=== PATIENT | male | born 1950 | race Caucasian/White ===

== ENCOUNTER → 2019-05-13 06:47 | Outpatient (CLI) | payer OTHER, SELFPAY ==
--- NOTE | 2019-05-13 | DI.ECHO.S_ITS ---
[place] +---------+ [facility] +---------+ : : [address] : [address] : : : : [id number] : : : : Phone: [phone]+ Echocardiogram Report + + :Name: TERESSA GRAHAM Study Date: 05/13/2019 Height: 67 in : :[facility] Weight: 160 lb: : Gender: Male BSA: 1.8 m2 : :: 1950 Age: 68 yrs : :Reason For Study: AFIB : : Performed By: Bony Pimentel : :Referring: DIVYA BELTRAN : + + Interpretation Summary The left ventricle is normal in size. The ejection fraction is estimated to be 60-65%. There are no focal wall motion abnormalities. Diastolic parameters suggest a relaxation abnormality of the left ventricle, consistent with probable normal filling pressures. The right ventricle is normal in size and function. Both atria are normal in size. There is no significant valvular heart disease. The ascending aorta is mildly enlarged. Procedure: A two-dimensional transthoracic echocardiogram with color flow and Doppler was performed. The study quality was technically good. There is no prior echocardiogram noted for this patient. The patient was in normal sinus rhythm during the exam. Left Ventricle: The left ventricle is normal in size. There is normal left ventricular wall thickness. The ejection fraction is estimated to be 60-65%. There are no focal wall motion abnormalities. Diastolic parameters suggest a relaxation abnormality of the left ventricle, consistent with probable normal filling pressures. Right Ventricle: The right ventricle is normal in size and function. Atria: Both atria are normal in size. The interatrial septum is intact with no evidence for an atrial septal defect. Mitral Valve: The mitral valve is normal in structure and function. There is trace mitral regurgitation. Aortic Valve: The aortic valve is trileaflet. The aortic valve opens well. No aortic regurgitation is present. Tricuspid Valve: The tricuspid valve is normal in structure and function. There is trace tricuspid regurgitation. Pulmonic Valve: The pulmonic valve is normal in structure and function. There is trace pulmonic regurgitation. There is no significant valvular heart disease. Great Vessels: The aortic root is normal size. The ascending aorta is mildly enlarged. The aortic arch is at the upper limits of normal in size. The pulmonary artery is normal size. The IVC is of normal diameter and collapses greater than 50% with a sniff. This suggests a low right atrial pressure of 3 mm Hg. Pericardium/ Pleura There is no pericardial effusion. There is no pleural effusion. MMode/2D Measurements & Calculations LVIDd: 4.9 cm LVOT diam: 2.3 cm LVIDs: 3.9 cm Ao root diam: 4.3 cm FS: 20.3 % Aortic Jxn: 3.3 cm EPSS: 0.56 cm asc Aorta Diam: 3.9 cm IVSd: 0.66 cm Ao Arch Diam (Prox Trans): 3.1 cm LVPWd: 0.73 cm LV alicea. diameter/BSA (cm/m^2): 2.7 LV sys. diameter/BSA (cm/m^2): 2.1 LA dimension: 3.3 cm RA long axis: 5.0 cm LA A2 area: 20.2 cm2 RA area: 15.1 cm2 LA A4 area: 16.8 cm2 RA vol: 38.8 ml LA length (vol): 4.6 cm RA : 21.1 ml/m2 LA vol: 62.6 ml IVC diam: 1.3 cm LA vol index: 34.0 ml/m2 Doppler Measurements & Calculations Ao V2 max: 99.0 cm/sec LVOT Max Vladislav: 76.9 cm/sec Ao V2 mean: 76.4 cm/sec LV V1 max P.4 mmHg Ao max P.9 mmHg LV V1 VTI: 18.8 cm Ao mean P.5 mmHg YASIR(I,D): 3.9 cm2 Ao V2 VTI: 19.9 cm YASIR(V,D): 3.2 cm2 sev ratio: 0.94 YASIR indexed to BSA (cm^2/m^2): 2.1 MV E max vladislav: 41.0 cm/sec TR max vladislav: 195.1 cm/sec MV A max vladislav: 57.3 cm/sec TR max P.2 mmHg MV E/A: 0.72 PA V2 max: 75.2 cm/sec Med Peak E' Vladislav: 4.4 cm/sec PA V2 mean: 56.4 cm/sec E/E' med: 9.2 PA mean P.3 mmHg Lat Peak E' Vladislav: 8.2 cm/sec PA pr(Accel): 51.6 mmHg E/E' lat: 5.0 PA Accel Time: 0.06 sec E/e' average: 7.1 MV dec time: 0.13 sec SV(LVOT): 78.3 ml Reading Physician:01:[id number] PM
== END ==
PROVIDERS: Visit Provider Physician Assistant
DX: I48.91 Unspecified atrial fibrillation (principal); I77.89 Other specified disorders of arteries and arterioles
CPT/HCPCS: 93306

== ENCOUNTER → 2025-01-27 08:01 | Outpatient (CLI) | payer OTHER, SELFPAY ==
--- NOTE | 2025-01-27 08:03 | DI.ECHO.S_ITS ---
[facility] +---------+ [facility] : : [address] : : [id number] : : Phone: [phone] Echocardiogram Report + + :Name: TERESSA GRAHAM Study Date: 01/27/2025 Height: 68 in : :Hospital ReadingLocation: Weight: 145 lb : : Gender: Male BSA: 1.8 m2 : :: 1950 Age: 74 yrs BP: 167/95 mmHg: :Reason For Study: ISCHEMIC HEART DISEASE : :Ordering Physician: ROBERT, : :GAUTAM Performed By: Tan Hogan : :Referring: GAUTAM JONES : + + Interpretation Summary 1) Normal left ventricular thickness, size, wall motion, and systolic function (EF 55-60%). 2) Normal right ventricular size and function. 3) There is mild aortic regurgitation. 4) The aortic root is mildly dilated at 4.2cm. 5) Compared to the Echo done 10/23/2023, mildly enlargement of the aortic root is noted on this study. Procedure: A two-dimensional transthoracic echocardiogram with color flow and Doppler was performed. The study quality was technically good. Comparison is made with the echocardiogram of 10/23/2023. The patient was in normal sinus rhythm during the exam. Left Ventricle: The left ventricle is normal in size. There is normal left ventricular wall thickness. There is no ventricular septal defect visualized. The ejection fraction is estimated to be 55-60%. There are no focal wall motion abnormalities. Diastolic parameters suggest a relaxation abnormality of the left ventricle, consistent with probable normal filling pressures. Right Ventricle: The right ventricle is normal in size and function. Atria: The left atrium is mildly dilated. Right atrial size is normal. There is no Doppler evidence for an interatrial shunt. Mitral Valve: The mitral valve leaflets appear mildly thickened, but open well. The mitral valve leaflets are mildly calcified. There is trace mitral regurgitation. Aortic Valve: The aortic valve is trileaflet. The aortic valve opens well. There is no aortic valve stenosis. There is mild aortic regurgitation. Tricuspid Valve: The tricuspid valve leaflets are thin and pliable. No tricuspid regurgitation. Pulmonic Valve: The pulmonic valve is not well visualized. There is no pulmonic valvular regurgitation. Great Vessels: The aortic root is mildly dilated. The ascending aorta is at the upper limits of normal in size. The pulmonary artery is normal size. The IVC is of normal diameter and collapses greater than 50% with a sniff. This suggests a low right atrial pressure of 3 mm Hg. Pericardium/ Pleura There is no pericardial effusion. There is no pleural effusion. MMode/2D Measurements & Calculations LVIDd: 4.4 cm LVOT diam: 2.1 cm LVIDs: 3.1 cm Ao root diam: 4.2 cm FS: 29.2 % asc Aorta Diam: 3.6 cm EPSS: 0.70 cm Ao Arch Diam (Prox Trans): 2.2 cm IVSd: 0.97 cm LVPWd: 1.0 cm LV alicea. diameter/BSA (cm/m^2): 2.5 LV sys. diameter/BSA (cm/m^2): 1.8 LA A2 area: 24.6 cm2 RA long axis: 5.2 cm LA A4 area: 18.2 cm2 RA area: 14.0 cm2 LA length (vol): 5.4 cm RA vol: 32.0 ml LA vol: 70.7 ml RA : 18.0 ml/m2 LA vol index: 39.6 ml/m2 IVC diam: 1.2 cm RVD1 (basal): 2.7 cm RVD2 (mid): 2.4 cm TAPSE: 2.1 cm Doppler Measurements & Calculations Ao V2 max: 99.7 cm/sec LVOT Max Vladislav: 83.3 cm/sec Ao V2 mean: 69.0 cm/sec LV V1 max P.8 mmHg Ao max P.0 mmHg LV V1 VTI: 18.0 cm Ao mean P.1 mmHg YASIR(I,D): 2.9 cm2 Ao V2 VTI: 22.3 cm YASIR(V,D): 3.0 cm2 sev ratio: 0.81 YASIR indexed to BSA (cm^2/m^2): 1.6 MV E max vladislav: 49.6 cm/sec PA V2 max: 86.7 cm/sec MV A max vladislav: 68.3 cm/sec PA V2 mean: 63.7 cm/sec MV E/A: 0.73 PA mean P.7 mmHg Med Peak E' Vladislav: 5.2 cm/sec PA pr(Accel): 39.6 mmHg E/E' med: 9.5 Lat Peak E' Vladislav: 10.9 cm/sec E/E' lat: 4.6 E/e' average: 7.0 MV dec time: 0.16 sec SV(LVOT): 63.6 ml Reading Physician:01:17 PM
== END ==
PROVIDERS: PCP Family Medicine; Referring Provider Chiropractor; Visit Provider Chiropractor
DX: I35.1 Nonrheumatic aortic (valve) insufficiency (principal); I77.89 Other specified disorders of arteries and arterioles; I25.9 Chronic ischemic heart disease, unspecified
CPT/HCPCS: 93306